=== PATIENT | female | born 1965 | race Caucasian/White ===

== ENCOUNTER 2020-12-08 14:52 | Emergency (ER) | payer OTHER ==
[2020-12-08] MEDS ORDERED: NAPROXEN500 MG PO (17:49)
[2020-12-08] MEDS ORDERED: BACLOFEN 10MG T10 MG PO (17:49)
== END 2020-12-08 18:05 | disposition home or self-care (01) ==
LOC: FER 14:52
DX: S06.9X9A Unspecified intracranial injury with loss of consciousness of unspecified duration, initial encounter (principal); M54.6 Pain in thoracic spine; M54.5 Low back pain; Z86.73 Personal history of transient ischemic attack (TIA), and cerebral infarction without residual deficits; Z88.5 Allergy status to narcotic agent; V43.62XA Car passenger injured in collision with other type car in traffic accident, initial encounter; Y92.410 Unspecified street and highway as the place of occurrence of the external cause
CPT/HCPCS: 70450; 72125; 72131; 96372; J1100; J1885

== ENCOUNTER 2021-04-27 18:01 | Emergency (ER) | payer OTHER ==
[~2021-04-27 18:01] MED LIST: BACLOFEN 10MG T10 MG PO; NAPROXEN500 MG PO
== END 2021-04-27 19:50 | disposition left against medical advice (07) ==
LOC: FER 18:01
DX: Z53.8 Procedure and treatment not carried out for other reasons (principal)
CPT/HCPCS: 99281